=== PATIENT | female | born 1940 ===

== ENCOUNTER 2017-02-25 21:49 | Emergency (ER) | payer OTHER, MEDICAID ==
[2017-02-25 21:59] VITALS: O2SAT 98
--- NOTE | 2017-02-25 22:28 | C.PDOC ---
History Of Present Illness Patient is a 76 year old female who presents to the ER with a complaint of urinary frequency with incontinence for the past day. Patient also reports occasional chronic bilateral colicky flank discomfort, which make sitting and standing uncomfortable. Denies h/o constipation. Patient notes lidoderm patches help her feel better. Patient also notes occasional right knee pain, states she feels like it gives out, however no pain today. Denies foul smelling urine or dysuria. Time Seen by Provider: 02/25/17 22:10 Chief Complaint (Nursing): Back Pain History Per: Patient History/Exam Limitations: no limitations Onset/Duration Of Symptoms: Days (1) Current Symptoms Are (Timing): Still Present Previous Symptoms: Chronic Pain (sacroiliac, right knee) Associated Symptoms: Incontinence, Other (Frequency) Exacerbating Factor(s): Nothing Recent travel outside of the [place]: No Past Medical History Reviewed: Historical Data, Nursing Documentation, Vital Signs Vital Signs: Last Vital Signs Temp 98.0 F 02/25/17 23:40 Pulse 74 02/25/17 23:40 Resp 18 02/25/17 23:40 BP 172/92 H 02/25/17 23:40 Pulse Ox 98 02/25/17 23:49 - Medical History PMH: HTN Surgical History: No Surg Hx Family History: States: Unknown Family Hx - Social History Hx Alcohol Use: No Hx Substance Use: No - Immunization History Hx Tetanus Toxoid Vaccination: Yes Hx Influenza Vaccination: Yes Hx Pneumococcal Vaccination: Yes Review Of Systems Genitourinary: Positive for: Frequency, Incontinence. Negative for: Dysuria, Other (Foul smelling urine) Musculoskeletal: Positive for: Leg Pain (Right knee), Other (sacroiliac pain) Physical Exam - Physical Exam Appears: Well, Non-toxic, No Acute Distress Skin: Normal Color, Warm, Dry Head: Atraumatic, Normacephalic Oral Mucosa: Moist Chest: Symmetrical, No Tenderness Cardiovascular: Rhythm Regular, No Murmur Respiratory: Normal Breath Sounds, No Rales, No Rhonchi, No Wheezing Gastrointestinal/Abdominal: Soft, No Tenderness Back: No CVA Tenderness, No Other (Sacroiliac tenderness) Extremity: No Tenderness (Right knee), No Deformity (Right knee), No Swelling ( Right knee) Neurological/Psych: Oriented x3, Normal Speech, Normal Cognition ED Course And Treatment - Laboratory Results Result Diagrams: 02/25/17 22:54 02/25/17 22:54 Lab Interpretation: Normal (trop neg. ua neg.) ECG: Interpreted By Me ECG Rhythm: Sinus Rhythm ECG Interpretation: Normal Rate From EC O2 Sat by Pulse Oximetry: 98 (Room air) Pulse Ox Interpretation: Normal - Radiology CXR: Interpreted by Me CXR Interpretation: Yes: No Acute Disease - Other Rad abd x 2 X-Ray: Interpreted by Me (+FOS) r knee X-Ray: Interpreted by Me (+ mild misallignment, + arthritis lateral) Progress Note: EKG, blood work, abdominal x-ray, right knee x-ray and urinalysis ordered. Motrin PO administered. bedside bladder scan < 60 cc's argues against overflow incontinence. Reevaluation Time: 23:21 Reassessment Condition: Unchanged (remains asymptomatic.) Medical Decision Making Medical Decision Making: new urinary incontinence- seems stress incontinence. no suprapubic fullness and no excessive urine in bladder on bladder ultrasound. no UTI R knee pain, occasional laxity "gives out" ++ arthritis R knee, unable to assess ligamentous injuries, may be evaled by Ortho in [place]. b/l lateral flank fullness prob related to constipation- laxative and stool softners educated. LOW susp of AAA or mesenteric ischemia with normal cardiac w/u. Disposition Doctor Will See Patient In The: Office Counseled Patient/Family Regarding: Studies Performed, Diagnosis - Disposition Referrals: [facility] [Outside] Gareth Zapien MD [Staff Provider] - Lazarus Johnson MD [Staff Provider] - Shivani Johnson MD [Staff Provider] - Disposition: HOME/ ROUTINE Disposition Time: 23:28 Condition: GOOD Additional Instructions: Estrenemiento: Ana un purgante (Citrato de Magnesio) y re-evalua [place] molestia del abdomen despues de usar el charleen 2-3 veces Sigue un esuavesante de los heces (Colace 100 mg) dos veces al tamra. Come mas verduras crudas Ana mas agua Camina mas. Arthritis de la rodilla: Sigue con un Orthopedico [place] quiere. Incontinencia de la [place] Sigue con un Urologo [place]. Puede usar panuelos mientras tiempo. tratamiento del estrenemiento puede ayudar. Llama para hacer tevin con Dr. Johnson. Instructions: Constipation (ED), Urinary Incontinence (ED), Arthritis (ED) Print Language: FRENCH - Clinical Impression Clinical Impression: Urinary incontinence, Knee pain, chronic, Flank pain, chronic - Scribe Statement The provider has reviewed the documentation as recorded by the Scribkatharina Cerda All medical record entries made by the Scribkatharina were at my direction and personally dictated by me. I have reviewed the chart and agree that the record accurately reflects my personal performance of the history, physical exam, medical decision making, and the department course for this patient. I have also personally directed, reviewed, and agree with the discharge instructions and disposition.
[2017-02-25 22:51] LABS: RBC URINE < 1 /hpf (0-3); URINE BILIRUBIN NEGATIVE (NEGATIVE); URINE BLOOD NEGATIVE (NEGATIVE); URINE COLOR Straw (YELLOW); URINE GLUCOSE (UA) NORMAL (Normal); URINE KETONE NEGATIVE (NEGATIVE); URINE LEUKOCYTE ESTERASE NEG Leu/uL (Negative); URINE PROTEIN NEGATIVE (NEGATIVE); URINE UROBILINOGEN NORMAL mg/dL (0.2-1.0); WBC URINE < 1 /hpf (0-5)
[2017-02-25 22:56] LABS: BASO # 0.1 K/uL (0.0-0.2); BASO % 0.7 % (0.0-2.0); EOS # 0.1 K/uL (0.0-0.7); EOS % 1.5 % (0.0-4.0); HEMATOCRIT 41.3 % (34.0-47.0); LYMPH # 3.2 K/uL (1.0-4.3); LYMPH % 42.3 % (20.0-40.0); MEAN CELL VOLUME 88.7 fL (81.0-99.0); MEAN CORPUSCULAR HEMOGLOBIN 30.2 pg (27.0-31.0); MEAN CORPUSCULAR HGB CONC 34.1 g/dL (33.0-37.0); MONO # 0.7 K/uL (0.0-0.8); MONO % 9.1 % (0.0-10.0); RED CELL DISTRIBUTION WIDTH 14.3 % (11.5-14.5); WHITE BLOOD COUNT 7.6 K/uL (4.8-10.8)
[2017-02-25 23:04] LABS: CHLORIDE 104 mmol/L (98-107)
[2017-02-25 23:05] LABS: POTASSIUM 4.2 mmol/L (3.6-5.2); SODIUM 139 mmol/L (132-148)
[2017-02-25 23:07] LABS: ALB/GLOB RATIO 1.2 (1.0-2.1); ALKALINE PHOSPHATASE 91 U/L (38-126); AST/SGOT 27 U/L (14-36); BILIRUBIN,TOTAL 0.7 mg/dL (0.2-1.3); BLOOD UREA NITROGEN 16 mg/dL (7-17); CARBON DIOXIDE 24 mmol/L (22-30); GFR AFRICAN-AMERICAN > 60; TOTAL PROTEIN 7.9 g/dL (6.3-8.3)
[2017-02-25 23:08] LABS: ALT/SGPT 16 U/L (9-52); CALCIUM 8.7 mg/dl (8.6-10.4); GLUCOSE,RANDOM 104 mg/dL (65-105)
[2017-02-26 00:11] VITALS: BP 172/92; PULSE 74; RESP 18; TEMP 98
--- NOTE | 2017-02-26 12:24 | RAD ---
PROCEDURE: Radiographs of the chest and abdomen (obstructive series) HISTORY: abd pain COMPARISON: No prior. TECHNIQUE: AP radiograph of the chest, with upright and supine radiographs of the abdomen. FINDINGS: CHEST: Lungs: Clear. Cardiovascular: No radiographic findings to suggest acute or significant cardiovascular disease. Pleura: No pleural fluid. No pneumothorax. Other findings: None. ABDOMEN AND PELVIS: Bowel: Constipation without fecal impaction or obstruction. Free air: None. Bones: Unremarkable. Other findings: None. IMPRESSION: Unremarkable radiographs of chest and abdomen. No evidence of mechanical bowel obstruction. Concordant results with the preliminary interpretation rendered by the emergency department physician procedure.
--- NOTE | 2017-02-26 12:25 | RAD ---
PROCEDURE: Right Knee Radiographs. HISTORY: occasional R knee pain COMPARISON: None. FINDINGS: BONES: No acute fracture. Proliferative hypertrophic changes emanating from the femoral condyle and tibial plateau JOINTS: Severe lateral compartment narrowing without appreciable medial compartment or patellofemoral degenerative change. JOINT EFFUSION: None. OTHER FINDINGS: None. IMPRESSION: No acute findings related to/accounting for the clinical presentation.
--- NOTE | 2017-03-01 12:45 | CARD ---
APPROVED REPORT EKG Measurement Heart [id number] <Conclusion> Sinus rhythm with premature atrial complexes Left anterior fascicular block Abnormal ECG
== END 2017-02-25 23:55 | disposition home or self-care (01) ==
LOC: C.ER 21:49
DX: R32 Unspecified urinary incontinence (principal); M25.561 Pain in right knee; R10.84 Generalized abdominal pain